=== PATIENT | male | born 1990 | race Two or more races ===

== ENCOUNTER 2017-03-30 01:48 | Emergency (ER) | payer MEDICAID ==
[~2017-03-30] VITALS: Ht 170.2 cm; Wt 63.5 kg
[2017-03-30 03:07] LABS: Basophils # (auto) 0.1 uL; Basophils % (auto) 0.3 % (0.0-2.0); Eosinophils # (auto) 0 uL; Eosinophils % (auto) 0.3 % (0.0-7.0); Hemoglobin 15.7 g/dL (13.5-17.5); Lymphocytes # (auto) 0.7 uL; Mean Corpuscular Hemoglobin 29.4 pg (28.0-32.0); Mean Corpuscular Hgb Conc. 34.8 g/dL (32.0-36.0); Mean Corpuscular Volume 84.5 fL (80.0-100.0); Monocytes # (auto) 0.9 uL; Monocytes % (auto) 5.3 % (0.0-12.0); Neutrophils # (auto) 15.6 uL; Neutrophils % (auto) 90.1 % (37.0-80.0); Platelet Count (auto) 213 10^3/uL (140-450); Red Blood Cells 5.32 10^6/uL (4.5-5.90); Red Cell Distribution Width 13.5 % (11.8-14.3); White Blood Cell 17.4 10^3/uL (4.4-10.8)
[2017-03-30 03:24] LABS: Albumin 4.4 g/dL (3.4-5.0); Calcium 8.7 mg/dL (8.5-10.1); Potassium 3.4 mmol/L (3.5-5.1)
[2017-03-30 03:26] LABS: BUN/Creatinine Ratio 12.2
[2017-03-30 03:28] LABS: Bilirubin, Total 0.6 mg/dL (0.2-1.0); Total Protein 7.3 g/dL (6.4-8.2)
[2017-03-30] MEDS ORDERED: IOHEXOL 300 MG/ML 100ML BOTTLE IJ ONE (07:25)
[2017-03-30] MEDS ORDERED: ONDANSETRON HCL 4 MG/2 ML VIAL IV ONE (07:30)
[2017-03-30] MEDS ORDERED: NALBUPHINE HCL 10 MG/1ml INJECTION IV ONE (07:30)
[2017-03-30] MEDS ORDERED: POTASSIUM CHL 10% (20 MEQ/15ML) 15ml ORAL SOLN PO ONE (08:45)
[2017-03-30] MEDS ORDERED: cefTRIAXone 1GM/10ml IVPUSH 10 ML IV ONE (08:45)
[2017-03-30 08:49] LABS: Urine Bacteria NONE SEEN /hpf (None Seen); Urine Blood Negative /uL (Negative); Urine Specific Gravity 1.017 (1.001-1.035); Urine WBC 1 /hpf (0 - 3)
[2017-03-30 09:07] VITALS: BP 118/68
[2017-03-30 09:07] LABS: Alcohol, Urine < 3.0 mg/dL (0-5); Amphetamine Screen, Urine NEGATIVE (NEGATIVE); Barbiturate Scree,Urine NEGATIVE (NEGATIVE); Benzodiazephine Screen, Urine NEGATIVE (NEGATIVE); Cannabinoid Screen, Urine NEGATIVE (NEGATIVE); Cocaine Screen, Urine NEGATIVE (NEGATIVE); Opiate Scree,Urine NEGATIVE (NEGATIVE); Phencyclidine Screen, Urine NEGATIVE (NEGATIVE)
== END 2017-03-30 09:32 | disposition home or self-care (01) ==
LOC: ER 01:51
DX: K29.70 Gastritis, unspecified, without bleeding (principal); J45.909 Unspecified asthma, uncomplicated
CPT/HCPCS: 36415; 74177; 80053; 80307; 81001; 83735; 85025; 96374; 96375; 99285; J2300; J2405; J7030; Q9967

== ENCOUNTER 2017-10-17 23:06 | Emergency (ER) | payer MEDICAID ==
[~2017-10-17] VITALS: Ht 170.2 cm; Wt 62.1 kg
[2017-10-17 23:32] VITALS: BP 111/81
== END 2017-10-18 04:30 | disposition home or self-care (01) ==
LOC: ER 23:08
DX: H60.8X2 Other otitis externa, left ear (principal); M26.629 Arthralgia of temporomandibular joint, unspecified side; J45.909 Unspecified asthma, uncomplicated

== ENCOUNTER 2019-02-23 13:31 | Emergency (ER) | payer MEDICAID ==
[~2019-02-23] VITALS: Ht 172.7 cm; Wt 72.6 kg
[2019-02-23 13:52] VITALS: BP 112/81
[2019-02-23] MEDS ORDERED: ALBUTEROL SULF 2.5 MG/0.5ML(0.5%) NEB SOLN NEB ONE (15:00)
[2019-02-23] MEDS ORDERED: IPRATROPIUM BROM 0.5 MG/2.5ML INH SOL NEB ONE (15:00)
[2019-02-23] MEDS ORDERED: methylPREDNISolone SOD SUCC 125 MG/2 ML VL IM ONE (15:00)
== END 2019-02-23 16:10 | disposition home or self-care (01) ==
LOC: EDBD 13:31 → ER 13:37
DX: J45.901 Unspecified asthma with (acute) exacerbation (principal)
CPT/HCPCS: 71046; 94640; 96372; 99283; J2930; J7611; J7644

== ENCOUNTER 2022-07-03 11:43 | Emergency (ER) | payer MEDICAID, OTHER ==
[~2022-07-03] VITALS: Ht 170.2 cm; Wt 66.8 kg
[2022-07-03] MEDS ORDERED: TRAM50TA2 PO (13:00)
[2022-07-03] MEDS ORDERED: HYDROcodone-ACET 5/325MG TAB PO ONE (13:00)
[2022-07-03 13:55] VITALS: BP 104/73
== END 2022-07-03 14:00 | disposition home or self-care (01) ==
LOC: ER 11:43
DX: S62.325A Displaced fracture of shaft of fourth metacarpal bone, left hand, initial encounter for closed fracture (principal); W22.8XXA Striking against or struck by other objects, initial encounter; Y93.89 Activity, other specified; Y92.89 Other specified places as the place of occurrence of the external cause; Y99.8 Other external cause status
CPT/HCPCS: 73130